=== PATIENT | female | born 1975 | race Hispanic/Latino ===

== ENCOUNTER 2022-06-07 11:55 | Emergency (ER) | payer SELFPAY ==
--- NOTE | ~2022-06-07 | CT_ITS ---
EXAMINATION: CT abdomen pelvis w con DATE: 06/07/2022 14:02 INDICATION: Right flank pain and right lower quadrant tenderness. TECHNIQUE: Computed tomography (CT) of the abdomen and pelvis was performed with 100 mL Omnipaque-350 intravenous contrast. Automated exposure control and iterative reconstruction technique were employe d. The dose-length product was 260.60 mGy-cm. COMPARISON: None FINDINGS: Lung bases are clear. Heart size is normal. No pericardial or pleural effusion. Bilateral breast impl ants. Cholecystectomy clips the gallbladder fossa. Liver, spleen, pancreas, bilateral adrenal glands and kidneys are normal. Bladder, anteverted uterus and left adnexa are unremarkable. 2 cm peripherall y enhancing likely corpus luteum cyst in the right ovary. Bowels including the appendix are normal. N o free intraperitoneal gas or fluid. No pathologically enlarged abdominal or pelvic lymphadenopathy. Mild lumbar dextrocurvature. IMPRESSION: 1. 2 cm peripherally enhancing right ovarian corpus luteum cyst. No other acute intra-abdominal/pelvi c process. Reviewed, dictated and finalized at location [facility]. [facility] IMPRESSION: 1. 2 cm peripherally enhancing right ovarian corpus luteum cyst. No other acute intra-abdominal/pelvic process.
[2022-06-07 12:01] VITALS: BP 131/71; PULSE 82; RESP 16; TEMP 36.2; O2SAT 100
--- NOTE | 2022-06-07 12:56 | ED.BACK ---
HPI - Back Pain/Injury General Chief Complaint: Back Pain/Injury Stated Complaint: Low back pain Time Seen by Provider: 06/07/22 12:09 History of Present Illness HPI Narrative: Patient is a 47-year-old female presenting with flank pain. Patient is [place]-speaking and her daughter is at bedside for translation. 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 Patient states that she has had lower back pain for the last several days. States that it is in her flanks and she also has right lower quadrant pain. Reports decreased appetite and nausea but no vomiting. No dysuria or hematuria. Denies any recent injuries. No midline pain. No numbness or weakness, saddle anesthesia, bladder or bowel incontinence. No fevers or chills, headache, chest pain, shortness of breath, cough. Related Data Allergies Allergy/AdvReac Type Severity Reaction Status Date / Time No Known Allergies Allergy Verified 06/07/22 13:15 Review of Systems Review of Systems: All systems reviewed & are unremarkable except as noted in HPI and below Exam Narrative: GENERAL: Well-appearing, well-nourished, and in no acute distress. HEAD: Normocephalic, atraumatic. EYES: PERRLA and EOMI. ENT: Nares clear, no rhinorrhea or epistaxis. Mucous membranes moist. NECK: Supple. CHEST: Clear to auscultation. No respiratory distress. HEART: Regular rate and rhythm. No murmur heard. Normal peripheral pulses. ABDOMEN: Soft, RLQ tenderness, +R CVA tenderness, nondistended EXTREMITIES: Normal range of motion. No edema. SKIN: Warm, dry, no rash. NEURO: No focal deficits. Alert and oriented x3. PSYCH: Normal mood and affect. Course Vital Signs Vital signs: Vital Signs Temperature 97.2 F L 06/07/22 12:01 Pulse Rate 82 06/07/22 12:01 Respiratory Rate 16 06/07/22 12:01 Blood Pressure 131/71 06/07/22 12:01 Pulse Oximetry 100 06/07/22 12:01 Oxygen Delivery Room Air 06/07/22 12:01 Temperature 97.2 F L 06/07/22 12:01 Pulse Rate 80 06/07/22 15:42 Respiratory Rate 18 06/07/22 15:42 Blood Pressure 130/69 06/07/22 15:42 Pulse Oximetry 100 06/07/22 15:42 Oxygen Delivery Room Air 06/07/22 12:01 MDM - Back Pain/Injury MDM Narrative Medical decision making narrative: Patient is a 47-year-old female presenting with flank and abdominal pain. Vitals within normal limits. Exam remarkable for the above. Blood work without abnormalities. CT abdomen pelvis without significant abnormalities. There is evidence of a corpus luteum cyst on the right ovary. UA shows UTI. Patient given a dose of Keflex. On reevaluation, the patient states that her pain has significantly improved. States that she feels much more comfortable. We will send in a prescription for Keflex. Advised to follow-up with her PCP. Appropriate return precautions given. Patient and her daughter voiced understanding and are agreeable with plan. Discharged in stable condition. Differential Diagnosis Differential diagnosis: Likely lumbar radiculopathy, renal colic, pyelonephritis and other (UTI) Lab Data 06/07/22 13:08 06/07/22 13:08 Labs: Lab Results 06/07/22 06/07/22 06/07/22 Range/Units 13:08 13:08 13:08 WBC 7.5 (4.5-10.0) K/mm3 RBC 3.94 L (4.2-5.4) M/mm3 Hgb 11.5 L (12.0-15.0) g/dL Hct 34.4 L (37.0-47.0) % MCV 87.3 (80-100) fl MCH 29.2 (26-34) pg MCHC 33.4 (32-36) g/dl RDW 15.0 H (11.5-14.5) % Plt Count 305 (150-375) k/mm3 MPV 11.1 H (7.4-10.4) fl Immature Gran % (Auto) 0.3 (0-0.5) % Neut % (Auto) 56.3 (45.5-73.1) % Lymph % (Auto) 35.7 (18.3-44.2) % Maries % (Auto) 6.8 (2.6-8.5) % Eos % (Auto) 0.5 (0-4.4) % Baso % (Auto) 0.4 (0.2-1.2) % Lymph # (Auto) 2.68 (0.9-3.2) K/mm3 Maries # (Auto) 0.5 (0.1-0.6) K/mm3 Eos # (Auto) 0.0 (0-0.3) K/mm3 Baso # (Auto) 0.0 (0.0-0.1) K/mm3 Abs Immat Gran (auto) 0.02 (0.00-0.031) K/mm3 Absolute Neuts (auto) 4.2 (1.3-6.7
[2022-06-07] MEDS: SODIUM CHLORIDE 0.9% IV 1,000 ML 999 ML IV CONT (13:15)
[2022-06-07 13:31] LABS: Basophils Percent Auto 0.4 % (0.2-1.2); Eosinophils Percent Auto 0.5 % (0-4.4); Hematocrit 34.4 % (37.0-47.0); Hemoglobin 11.5 g/dL (12.0-15.0); Immature Granulocyte Absolute 0.02 K/mm3 (0.00-0.031); Immature Granulocyte Percent A 0.3 % (0-0.5); Lymphocytes Absolute Auto 2.68 K/mm3 (0.9-3.2); Lymphocytes Percent Auto 35.7 % (18.3-44.2); Mean Corpuscular HGB Conc 33.4 g/dl (32-36); Mean Corpuscular Hemoglobin 29.2 pg (26-34); Mean Corpuscular Volume 87.3 fl (80-100); Mean Platelet Volume 11.1 fl (7.4-10.4); Monocytes Absolute Auto 0.5 K/mm3 (0.1-0.6); Monocytes Percent Auto 6.8 % (2.6-8.5); Neutrophils Absolute Auto 4.2 K/mm3 (1.3-6.7); Neutrophils Percent Auto 56.3 % (45.5-73.1); Platelet Count Result 305 k/mm3 (150-375); Red Blood Count 3.94 M/mm3 (4.2-5.4); White Blood Count 7.5 K/mm3 (4.5-10.0)
[2022-06-07 13:32] LABS: Appearance Urine Clear (Clear); Bilirubin Urine Negative (Negative); Blood Urine Negative (Negative); Color Urine Yellow (Yellow); Glucose Urine UA Negative (Negative); Ketones Urine Negative (Negative); Leukocyte Esterase Ur 1+ LEU/UL (Negative); Nitrate Urine Negative (Negative); Protein Urine Negative (Negative); Specific Grav Ur 1.015 (1.001-1.035); Urobilinogen Urine 0.2 mg/dL (<2.0)
[2022-06-07 13:45] LABS: Alanine Aminotransferase 14 U/L (6-35); Albumin Level 4.3 g/dL (3.5-5.1); Alkaline Phosphatase 101 U/L (38-126); Anion Gap 4 mmol/L (8-16); Aspartate Amino Transferase 17 U/L (14-36); Bilirubin,Total 0.3 mg/dL (0.2-1.3); Blood Urea Nitrogen 10 mg/dL (7-17); Calcium 8.8 mg/dL (8.4-10.2); Carbon Dioxide 29 mmol/L (22-30); Chloride 102 mmol/L (98-107); Estimated CRCL calculation 77 ml/min; Estimated Glomerular Filt Rate > 60; Glucose 93 mg/dL (65-110); Lipase 54 U/L (23-300); Potassium 4.1 mmol/L (3.4-5.0); Sodium 135 mmol/L (137-145)
[2022-06-07 13:57] LABS: Bacteria Urine 3+ /hpf; Mucus Urine Rare /lpf; RBC Urine 0-2 /hpf (0-2); Squamous Epithelial Cell Urine Occasional /hpf (Few)
[2022-06-07 14:32] LABS: Add Urine Microscopic? YES
[2022-06-07] MEDS: CEPHALEXIN 500 MG CAPSULE PO (15:24)
[2022-06-07 15:42] VITALS: BP 130/69; PULSE 80; RESP 18; O2SAT 100
== END 2022-06-07 15:44 | disposition home or self-care (01) ==
PROVIDERS: Emergency Provider Emergency Medicine
DX: N39.0 Urinary tract infection, site not specified (principal); N83.11 Corpus luteum cyst of right ovary
CPT/HCPCS: 36415; 74177; 80053; 81001; 81025; 83690; 85025; 87077; 87086; 87186; 96365; 99284; A9270; J0131; J7030; Q9967